=== PATIENT | female | born 1945 | race Caucasian/White ===

== ENCOUNTER → 2017-05-20 09:16 | Outpatient (CLI) | payer OTHER ==
[~2017-05-20 09:16] MED LIST: CARTIA XT240 MG; CEFTIN250 MG PO; LIPITOR; PEPCID40 MG PO; SYNTHROID50 MCG; XARELTO20 MG; ZOFRAN4 MG PO
== END | disposition home or self-care (01) ==
LOC: LAB 09:16
DX: C50.811 Malignant neoplasm of overlapping sites of right female breast (principal); C79.51 Secondary malignant neoplasm of bone; D63.0 Anemia in neoplastic disease; N18.3 Chronic kidney disease, stage 3 (moderate); I48.2 Chronic atrial fibrillation; D53.9 Nutritional anemia, unspecified; D50.8 Other iron deficiency anemias; D51.8 Other vitamin B12 deficiency anemias; I10 Essential (primary) hypertension; R97.0 Elevated carcinoembryonic antigen [CEA]; R97.8 Other abnormal tumor markers

== ENCOUNTER 2017-07-17 10:17 | Outpatient (CLI) | payer OTHER | END 2017-07-17 10:27 | disposition home or self-care (01) | LOC: LAB 10:17 | DX: C50.811 Malignant neoplasm of overlapping sites of right female breast (principal); C79.51 Secondary malignant neoplasm of bone; I48.2 Chronic atrial fibrillation; I10 Essential (primary) hypertension; D63.0 Anemia in neoplastic disease; D53.8 Other specified nutritional anemias; D50.8 Other iron deficiency anemias; R97.0 Elevated carcinoembryonic antigen [CEA]; R97.8 Other abnormal tumor markers; E11.65 Type 2 diabetes mellitus with hyperglycemia; E78.2 Mixed hyperlipidemia; E03.8 Other specified hypothyroidism; N39.0 Urinary tract infection, site not specified; Z12.11 Encounter for screening for malignant neoplasm of colon ==

== ENCOUNTER → 2017-09-23 09:00 | Outpatient (CLI) | payer OTHER | END | disposition home or self-care (01) | LOC: LAB 09:00 | DX: C50.811 Malignant neoplasm of overlapping sites of right female breast (principal); C79.51 Secondary malignant neoplasm of bone; D63.0 Anemia in neoplastic disease; N18.3 Chronic kidney disease, stage 3 (moderate); I48.2 Chronic atrial fibrillation; D53.8 Other specified nutritional anemias; R97.0 Elevated carcinoembryonic antigen [CEA]; R97.8 Other abnormal tumor markers; I10 Essential (primary) hypertension ==

== ENCOUNTER → 2017-10-09 07:20 | Outpatient (CLI) | payer OTHER | END | disposition home or self-care (01) | LOC: LAB 07:20 | DX: E11.65 Type 2 diabetes mellitus with hyperglycemia (principal); E78.2 Mixed hyperlipidemia; E03.8 Other specified hypothyroidism; D68.8 Other specified coagulation defects; Z12.11 Encounter for screening for malignant neoplasm of colon; E11.21 Type 2 diabetes mellitus with diabetic nephropathy ==

== ENCOUNTER → 2017-10-15 08:14 | Outpatient (CLI) | payer OTHER | END | disposition home or self-care (01) | LOC: LAB 08:14 | DX: E11.65 Type 2 diabetes mellitus with hyperglycemia (principal); E78.2 Mixed hyperlipidemia; E03.8 Other specified hypothyroidism; D68.8 Other specified coagulation defects; Z12.11 Encounter for screening for malignant neoplasm of colon; E11.21 Type 2 diabetes mellitus with diabetic nephropathy ==

== ENCOUNTER 2017-12-23 08:39 | Outpatient (CLI) | payer OTHER | END 2017-12-23 08:48 | disposition home or self-care (01) | LOC: LAB 08:39 | DX: C50.811 Malignant neoplasm of overlapping sites of right female breast (principal); C79.51 Secondary malignant neoplasm of bone; D63.0 Anemia in neoplastic disease; N18.3 Chronic kidney disease, stage 3 (moderate); I48.2 Chronic atrial fibrillation; D53.8 Other specified nutritional anemias; R97.0 Elevated carcinoembryonic antigen [CEA]; R97.8 Other abnormal tumor markers; D50.8 Other iron deficiency anemias; D51.8 Other vitamin B12 deficiency anemias; I10 Essential (primary) hypertension; E03.8 Other specified hypothyroidism ==

== ENCOUNTER 2018-01-27 09:34 | Outpatient (CLI) | payer OTHER | END 2018-01-27 09:40 | disposition home or self-care (01) | LOC: LAB 09:34 | DX: C50.811 Malignant neoplasm of overlapping sites of right female breast (principal); C79.51 Secondary malignant neoplasm of bone; D63.0 Anemia in neoplastic disease; N18.3 Chronic kidney disease, stage 3 (moderate); I48.2 Chronic atrial fibrillation; D53.8 Other specified nutritional anemias; R97.0 Elevated carcinoembryonic antigen [CEA]; R97.8 Other abnormal tumor markers; D50.8 Other iron deficiency anemias; D51.8 Other vitamin B12 deficiency anemias; E03.8 Other specified hypothyroidism; E78.2 Mixed hyperlipidemia; D68.8 Other specified coagulation defects ==

== ENCOUNTER 2018-02-04 11:39 | Outpatient (CLI) | payer OTHER | END 2018-02-04 11:52 | disposition home or self-care (01) | LOC: MRI 11:39 | DX: M25.851 Other specified joint disorders, right hip (principal); C50.919 Malignant neoplasm of unspecified site of unspecified female breast | CPT/HCPCS: 72195 ==

== ENCOUNTER 2018-03-04 09:56 | Outpatient (CLI) | payer OTHER | END 2018-03-04 10:03 | disposition home or self-care (01) | LOC: LAB 09:56 | DX: C50.811 Malignant neoplasm of overlapping sites of right female breast (principal); C79.51 Secondary malignant neoplasm of bone; D63.0 Anemia in neoplastic disease; N18.3 Chronic kidney disease, stage 3 (moderate); I48.2 Chronic atrial fibrillation; D53.8 Other specified nutritional anemias; R97.0 Elevated carcinoembryonic antigen [CEA]; R97.8 Other abnormal tumor markers ==

== ENCOUNTER 2018-05-06 09:48 | Outpatient (CLI) | payer OTHER | END 2018-05-06 09:54 | disposition home or self-care (01) | LOC: NUCLEAR 09:48 | DX: C50.811 Malignant neoplasm of overlapping sites of right female breast (principal); C79.51 Secondary malignant neoplasm of bone; D63.0 Anemia in neoplastic disease; N18.3 Chronic kidney disease, stage 3 (moderate); I48.2 Chronic atrial fibrillation; D53.9 Nutritional anemia, unspecified | CPT/HCPCS: 78306; 78320; A9503 ==

== ENCOUNTER 2018-05-13 09:23 | Outpatient (CLI) | payer OTHER | END 2018-05-13 09:37 | disposition home or self-care (01) | LOC: LAB 09:23 | DX: C50.811 Malignant neoplasm of overlapping sites of right female breast (principal); D63.0 Anemia in neoplastic disease; N18.3 Chronic kidney disease, stage 3 (moderate); I48.2 Chronic atrial fibrillation; D53.8 Other specified nutritional anemias; R97.0 Elevated carcinoembryonic antigen [CEA]; R97.8 Other abnormal tumor markers; D50.8 Other iron deficiency anemias; D51.8 Other vitamin B12 deficiency anemias; I10 Essential (primary) hypertension; E11.65 Type 2 diabetes mellitus with hyperglycemia; E78.2 Mixed hyperlipidemia; E11.21 Type 2 diabetes mellitus with diabetic nephropathy; E03.8 Other specified hypothyroidism; D68.8 Other specified coagulation defects; D64.89 Other specified anemias; N39.0 Urinary tract infection, site not specified ==

== ENCOUNTER 2018-10-09 09:57 | Outpatient (CLI) | payer OTHER | END 2018-10-09 10:04 | disposition home or self-care (01) | LOC: LAB 09:57 | DX: E03.8 Other specified hypothyroidism (principal); C50.811 Malignant neoplasm of overlapping sites of right female breast; C79.51 Secondary malignant neoplasm of bone; D63.0 Anemia in neoplastic disease; N18.3 Chronic kidney disease, stage 3 (moderate); I48.2 Chronic atrial fibrillation; D53.8 Other specified nutritional anemias; R97.0 Elevated carcinoembryonic antigen [CEA]; R97.8 Other abnormal tumor markers ==

== ENCOUNTER 2019-01-20 09:18 | Outpatient (CLI) | payer OTHER | END 2019-01-20 09:23 | disposition home or self-care (01) | LOC: LAB 09:18 | DX: C50.811 Malignant neoplasm of overlapping sites of right female breast (principal); C79.51 Secondary malignant neoplasm of bone; D63.0 Anemia in neoplastic disease; N18.3 Chronic kidney disease, stage 3 (moderate); I48.2 Chronic atrial fibrillation; R97.0 Elevated carcinoembryonic antigen [CEA]; R97.8 Other abnormal tumor markers; D50.8 Other iron deficiency anemias; D51.8 Other vitamin B12 deficiency anemias ==

== ENCOUNTER 2019-02-04 09:55 | Outpatient (CLI) | payer OTHER | END 2019-02-04 10:00 | disposition home or self-care (01) | LOC: LAB 09:55 | DX: D50.8 Other iron deficiency anemias (principal); R97.0 Elevated carcinoembryonic antigen [CEA]; R97.8 Other abnormal tumor markers; I10 Essential (primary) hypertension; D51.8 Other vitamin B12 deficiency anemias ==

== ENCOUNTER 2019-05-06 09:48 | Outpatient (CLI) | payer OTHER | END 2019-05-06 09:53 | disposition home or self-care (01) | LOC: LAB 09:48 | DX: C50.811 Malignant neoplasm of overlapping sites of right female breast (principal); C79.51 Secondary malignant neoplasm of bone; D63.0 Anemia in neoplastic disease; N18.3 Chronic kidney disease, stage 3 (moderate); I48.20 Chronic atrial fibrillation, unspecified; D53.8 Other specified nutritional anemias; R97.0 Elevated carcinoembryonic antigen [CEA]; R97.8 Other abnormal tumor markers ==

== ENCOUNTER 2019-05-26 15:18 | Outpatient (CLI) | payer OTHER | END 2019-05-26 18:00 | disposition home or self-care (01) | LOC: LAB 15:18 | DX: A41.1 Sepsis due to other specified staphylococcus (principal); J11.1 Influenza due to unidentified influenza virus with other respiratory manifestations ==

== ENCOUNTER 2019-05-26 16:00 | Outpatient (CLI) | payer OTHER | END 2019-05-26 16:55 | disposition home or self-care (01) | LOC: TOM 16:00 | DX: J15.212 Pneumonia due to Methicillin resistant Staphylococcus aureus (principal) ==

== ENCOUNTER 2019-09-29 09:28 | Outpatient (CLI) | payer OTHER | END 2019-09-29 09:32 | disposition home or self-care (01) | LOC: LAB 09:28 | PROVIDERS: ATTEND Internal Medicine Hematology & Oncology | DX: C50.811 Malignant neoplasm of overlapping sites of right female breast (principal); C79.51 Secondary malignant neoplasm of bone; D63.0 Anemia in neoplastic disease; N18.3 Chronic kidney disease, stage 3 (moderate); I48.21 Permanent atrial fibrillation; D53.8 Other specified nutritional anemias; R97.0 Elevated carcinoembryonic antigen [CEA]; R97.8 Other abnormal tumor markers; D50.8 Other iron deficiency anemias ==

== ENCOUNTER → 2019-10-20 | Outpatient (CLI) | payer OTHER | END | disposition home or self-care (01) | LOC: LAB 10:13 | PROVIDERS: ATTEND Internal Medicine Hematology & Oncology | DX: D50.8 Other iron deficiency anemias (principal); C50.811 Malignant neoplasm of overlapping sites of right female breast; C79.51 Secondary malignant neoplasm of bone; D63.0 Anemia in neoplastic disease; N18.3 Chronic kidney disease, stage 3 (moderate); D53.8 Other specified nutritional anemias; R97.0 Elevated carcinoembryonic antigen [CEA]; R97.8 Other abnormal tumor markers ==

== ENCOUNTER 2020-11-24 14:36 | Emergency (ER) | payer OTHER ==
[~2020-11-24] VITALS: Ht 162.6 cm; Wt 54.4 kg
[2020-11-24] MEDS ORDERED: ELIQUIS5 MG PO (15:15)
[2020-11-24] MEDS ORDERED: SYNTHROID75 MCG PO (15:16)
[2020-11-24] MEDS ORDERED: CARTIA XT120 MG PO (15:17)
[2020-11-24] MEDS ORDERED: FEMARA2.5 MG PO (15:17)
[2020-11-24] MEDS ORDERED: LIPITOR20 MG PO (15:17)
== END 2020-11-25 13:13 | disposition home or self-care (01) ==
LOC: ER 14:36
DX: I82.C11 Acute embolism and thrombosis of right internal jugular vein (principal)

== ENCOUNTER 2021-06-08 11:01 | Outpatient (CLI) | payer OTHER ==
[~2021-06-08 11:01] MED LIST changes: +CARTIA XT120 MG PO; +ELIQUIS5 MG PO; +FEMARA2.5 MG PO; +LIPITOR20 MG PO; +SYNTHROID75 MCG PO
== END 2021-06-08 11:15 | disposition home or self-care (01) ==
LOC: TOM 11:01
PROVIDERS: ATTEND Internal Medicine Hematology & Oncology
DX: C50.811 Malignant neoplasm of overlapping sites of right female breast (principal); C79.51 Secondary malignant neoplasm of bone; D63.0 Anemia in neoplastic disease; N18.9 Chronic kidney disease, unspecified; I48.20 Chronic atrial fibrillation, unspecified; R97.0 Elevated carcinoembryonic antigen [CEA]